=== PATIENT | male | born 1960 | race Caucasian/White ===

== ENCOUNTER 2023-06-01 12:17 | Day surgery (SDC) | payer BC ==
[2023-05-31 11:26] LABS: BASOPHILS % (AUTO) 0.8 % (0-1); EOSINOPHILS # (AUTO) 0.2 X10'3 (0-0.9); EOSINOPHILS % (AUTO) 4.9 % (0-6); HEMATOCRIT 43.5 % (42.0-52.0); LYMPHOCYTES # (AUTO) 1.2 X10'3 (1.1-4.8); LYMPHOCYTES % (AUTO) 27.7 % (21-51); MEAN CORPUSCULAR HEMOGLOBIN 30.2 PG (27.0-31.0); MEAN CORPUSCULAR HGB CONC 34.5 g/dL (33.0-36.5); MEAN CORPUSCULAR VOLUME 87.6 FL (78-98); MEAN PLATELET VOLUME 8.3 FL (7.4-10.4); MONOCYTES # (AUTO) 0.6 X10'3 (0-0.9); MONOCYTES % (AUTO) 14.3 % (2-12); NEUTROPHILS # (AUTO) 2.2 X10'3 (1.8-7.7); NEUTROPHILS % (AUTO) 52.3 % (42-75); PLATELET COUNT 172 X10'3 (140-440); RED BLOOD COUNT 4.97 X10'6 (4.70-6.10); RED CELL DISTRIBUTION WIDTH 12.9 % (11.5-14.5); WHITE BLOOD COUNT 4.3 X10'3 (4.5-11.0)
[2023-05-31 11:49] LABS: APTT 29 SECONDS (22-32); INR 1.1 INR; PROTHROMBIN TIME 11.3 SECONDS (9.0-12.0)
[2023-05-31 11:50] LABS: ANION GAP 8 (8-16); BLOOD UREA NITROGEN 14 MG/DL (7-18); BUN/CREATININE RATIO 13.6 (10.0-20.0); CALCIUM 8.9 MG/DL (8.5-10.1); CHLORIDE 106 MMOL/L (99-107); CHOL/HDL RATIO 2.8 (0.00-4.99); CHOLESTEROL 115 MG/DL (0-200); CREATININE 1.03 MG/DL (0.60-1.10); GLUCOSE 91 MG/DL (70-104); HDL CHOLESTEROL 41 MG/DL (35-60); LDL CHOLESTEROL 62 MG/DL (50-100); POTASSIUM 4.1 MMOL/L (3.5-5.1); SODIUM 141 MMOL/L (135-145); TOTAL CARBON DIOXIDE 27.3 MMOL/L (24-32); TRIGLYCERIDES 53 MG/DL (20-135); eGFR 73 ML/MIN
[2023-06-01] VITALS (9 sets, daily range): BP systolic 129–148; BP diastolic 52–86; PULSE 62–67; RESP 12–17; TEMP 97.9; O2SAT 93–99
[~2023-06-01] VITALS: Ht 177.8 cm; Wt 100.2 kg
[2023-06-01] MEDS ORDERED: LORazepam 0.5 MG tablet PO PRN (12:35)
[2023-06-01] MEDS ORDERED: diphenhydrAMINE 25mg capsule PO PRN (12:35)
[2023-06-01] MEDS ORDERED: normal saline 1,000 ML IV SCH (12:35)
[2023-06-01] MEDS ORDERED: LEVO25TA7 PO (13:05)
[2023-06-01] MEDS ORDERED: ATOR20TA66 PO (13:05)
[2023-06-01] MEDS ORDERED: LISI20TA28 PO (13:05)
[2023-06-01] MEDS ORDERED: ASPI-1265 PO (13:06)
[2023-06-01] MEDS ORDERED: LIDOcaine 1% (10mg/ml) 2ml vial ONE (16:22)
[2023-06-01] MEDS ORDERED: iohexol 350MG/ML 100ml bottle IV ONE (16:23)
[2023-06-01] MEDS ORDERED: verapamil 2.5 mg/ml inj IV ONE (16:23)
[2023-06-01] MEDS ORDERED: midazolam 1 mg/ML 2ml injection ONE (16:23)
[2023-06-01] MEDS ORDERED: fentaNYL/PF 50MCG/1 ML 2ML syringe ONE (16:23)
[2023-06-01] MEDS ORDERED: heparin 1,000unit/ml 10ml vial 10 ML ONE (16:26)
[2023-06-01] MEDS ORDERED: nitroGLYCERIN 25mg/250mL D5W 250 ML IV ONE (16:33)
[2023-06-01] MEDS ORDERED: proCHLORperazine 10 MG/2 ml inj IV PRN (17:35)
[2023-06-01] MEDS ORDERED: HYDROcodone/acetaminophen 10/325mg tab PO PRN (17:35)
[2023-06-01] MEDS ORDERED: ondansetron/PF 4mg/2ml inj IV PRN (17:35)
[2023-06-01] MEDS ORDERED: nitroGLYCERIN 0.4mg SUBLingual tab SL PRN (17:35)
[2023-06-01] MEDS ORDERED: OXAZEpam 15mg capsule PO PRN (17:35)
[2023-06-01] MEDS ORDERED: HYDROcodone/acetaminophen 5mg/325mg tablet PO PRN (17:35)
== END 2023-06-01 19:40 | disposition home or self-care (01) ==
LOC: SSTAY O 12:17
PROVIDERS: ATTEND Student in an Organized Health Care Education/Training Program
DX: I25.10 Atherosclerotic heart disease of native coronary artery without angina pectoris (principal); I10 Essential (primary) hypertension; E78.5 Hyperlipidemia, unspecified; Z79.899 Other long term (current) drug therapy; Z79.82 Long term (current) use of aspirin; R06.02 Shortness of breath
CPT/HCPCS: 36415; 80048; 80061; 83880; 85025; 85610; 85730; 93458; 99152; J1644; J2250; J3010; J3490; J7030; Q0163; Q9967; A6258; A6449; C1894